=== PATIENT | male | born 1975 | race Caucasian/White ===

== ENCOUNTER 2019-02-03 09:55 | Emergency (ER) | payer OTHER ==
--- NOTE | 2019-02-03 11:47 | UC ---
General HPI - HPI Summary HPI Summary: He was standing on a three-step stool which suddenly collapsed he went straight down landing on pieces of the stool sustaining pain to his left heel and inversion to his right foot. He then broke his fall to the right landing fairly softly on his right side. He comes in complaining of time early pain in the right ankle but also pain in the left foot, bilateral knees and neck. He has no paresthesias or weakness. He did not hit his head. - History of Current Complaint Chief Complaint: UCTrauma Stated Complaint: NECK/KNEE/ANKLE INJURY Time Seen by Provider: 02/03/19 10:26 Hx Obtained From: Patient Onset/Duration: Sudden Onset Timing: Constant Onset Severity: Moderate Current Severity: Moderate Pain Intensity: 6 - Allergy/Home Medications Allergies/Adverse Reactions: Allergies Allergy/AdvReac Type Severity Reaction Status Date / Time amoxicillin Allergy Intermediate Rash Verified 02/03/19 10:18 clavulanic acid Allergy Intermediate Rash Verified 02/03/19 10:18 [From Augmentin] Penicillins Allergy Intermediate Rash Verified 02/03/19 10:18 PMH/Surg Hx/FS Hx/Imm Hx Previously Healthy: Yes - Surgical History Surgical History: Yes Surgery Procedure, Year, and Place: hernia x 2, appy - Social History Alcohol Use: Occasionally Substance Use Type: None Smoking Status (MU): Never Smoked Tobacco - Immunization History Most Recent Influenza Vaccination: no Review of Systems All Other Systems Reviewed And Are Negative: Yes Physical Exam - Summary Physical Exam Summary: He is nontoxic in appearance with stable vitals Triage Information Reviewed: Yes Appearance: Well-Appearing, No Pain Distress Vital Signs: Initial Vital Signs Temp 97.8 F 02/03/19 10:13 Pulse 47 02/03/19 10:13 Resp 18 02/03/19 10:13 BP 124/78 02/03/19 10:13 Pulse Ox 100 02/03/19 10:13 Vital Signs Reviewed: Yes Eye Exam: Normal ENT Exam: Normal Neck exam: Other - Some mild midline tenderness Respiratory Exam: Normal Cardiovascular Exam: Normal Abdominal Exam: Normal Musculoskeletal Exam: Other - Is got tenderness to stress his lateral ligaments in his right ankle as well as some mild tenderness to palpation of the lateral malleolus. He's got some tenderness over the plantar aspect of his proximal foot. Both of his knees have tenderness to range of motion. The right is tender to stressing the lateral collaterals and the left medial collaterals. Diagnostics - Radiology C-spine Radiology Interpretation Completed By: Radiologist Summary of Radiographic Findings: No acute process right ankle Radiology Interpretation Completed By: Radiologist Summary of Radiographic Findings: No acute process left foot Radiology Interpretation Completed By: Radiologist Summary of Radiographic Findings: No acute process bilateral knees Radiology Interpretation Completed By: Radiologist Summary of Radiographic Findings: No acute process Course/Dx - Course Course Of Treatment: He is able to get around pretty well with his right ankle in a gel cast and using crutches. He seems to have a fairly classic grade 1 or 2 sprain of the right ankle and the rest of the finger just bumps and bruises. I recommended rest and ibuprofen and gave him a work note. - Diagnoses Provider Diagnosis: Right ankle sprain, Multiple contusions Discharge ED - Sign-Out/Discharge Documenting (check all that apply): Patient Departure All imaging exams completed and their final reports reviewed: Yes - Discharge Plan Condition: Stable Disposition: HOME Patient Education Materials: Ankle Sprain (ED) Referrals: Daphne Arvizu NP [Primary Care Provider] - Additional Instructions: Expect widespread aches and pains. If they have any concerns please return. If her ankle is not improving in the next week or so please follow up with her PCP - Billing Disposition and Condition Condition: STABLE Disposition: Home
[2019-02-03 12:27] VITALS: BP 130/74
== END 2019-02-03 12:23 | disposition home or self-care (01) ==
LOC: UCEAST 09:55
DX: S93.401A Sprain of unspecified ligament of right ankle, initial encounter (principal); S60.00XA Contusion of unspecified finger without damage to nail, initial encounter; M25.561 Pain in right knee; M25.562 Pain in left knee; M54.2 Cervicalgia; Z88.0 Allergy status to penicillin; W08.XXXA Fall from other furniture, initial encounter; Y92.9 Unspecified place or not applicable
CPT/HCPCS: 72020; 72050; 99213; G0463

== ENCOUNTER 2019-05-28 16:59 | Emergency (ER) | payer OTHER ==
--- NOTE | 2019-05-28 17:24 | UC ---
FLU HPI - HPI Summary HPI Summary: 44-year-old male presenting with for complaining of chest congestion, fatigue, body aches, chills, and nonproductive cough 2 days. Patient states symptoms were worse on Sunday and he went home after work and slept for 15 hours. Patient states that today he has continued to cough and it is causing him right-sided chest pain. Notes feeling like he is short of breath, especially with coughing. Denies significant nasal congestion or sore throat. Notes nausea on Sunday. Denies vomiting, abdominal pain, and diarrhea. States he is taking DayQuil and using albuterol inhaler for symptom relief. PMHx significant for asthma and [employer]. - History of Current Complaint Stated Complaint: CHEST PAIN & CONGESTION Hx Obtained From: Patient Pain Intensity: 6 Pain Scale Used: 0-10 Numeric - Allergy/Home Medications Allergies/Adverse Reactions: Allergies Allergy/AdvReac Type Severity Reaction Status Date / Time amoxicillin Allergy Intermediate Rash Verified 05/28/19 17:16 clavulanic acid Allergy Intermediate Rash Verified 05/28/19 17:16 [From Augmentin] Penicillins Allergy Intermediate Rash Verified 05/28/19 17:16 Home Medications: Home Medications Montelukast Sodium TAB* [Singulair 10 MG TAB*] 1 tab PO DAILY 05/28/19 [History Confirmed 05/28/19] PMH/Surg Hx/FS Hx/Imm Hx Respiratory History: Asthma, Pneumonia - last year - Surgical History Surgical History: Yes Surgery Procedure, Year, and Place: hernia x 2, appy - Family History Known Family History: Positive: Non-Contributory - Social History Alcohol Use: Occasionally Substance Use Type: None Smoking Status (MU): Never Smoked Tobacco - Immunization History Most Recent Influenza Vaccination: no Review of Systems All Other Systems Reviewed And Are Negative: Yes Constitutional: Positive: Chills, Fatigue ENT: Positive: Negative Respiratory: Positive: Shortness Of Breath, Cough - nonproductive, Other Cardiovascular: Positive: Chest Pain - "chest pain with coughing and deep breaths". Negative: Palpitations Gastrointestinal: Positive: Nausea - 2 days ago Musculoskeletal: Positive: Myalgia Neurological: Positive: Headache Physical Exam - Summary Physical Exam Summary: Vital Signs Reviewed: Yes A+Ox3, no pain distress, no respiratory distress Eyes: Conjunctiva Clear ENT: Hearing grossly normal TM x 2 clear, moist, uvula midline, no exudate, + pharyngeal erythema Neck: Positive: Supple Respiratory: Positive: No respiratory distress, No accessory muscle use, + expiratory wheezes left upper lobe, no rhonchi Cardiovascular: RRR nl s1, s2 no m/r Musculoskeletal Exam: CINTRON x 4 without difficulty Neurological: Positive: Alert Psychological: Positive: age appropriate behavior Skin: Positive: no rash, no ecchymosis Vital Signs: Initial Vital Signs Temp 100.3 F 05/28/19 17:10 Pulse 100 05/28/19 17:10 Resp 18 05/28/19 17:10 BP 126/81 05/28/19 17:10 Pulse Ox 94 05/28/19 17:10 Lab Results 05/28/19 Range/Units 17:52 Influenza A (Rapid) Positive A (Negative) Diagnostics - Radiology chest Radiology Interpretation Completed By: Radiologist Summary of Radiographic Findings: IMPRESSION: #. No evidence for pneumonia. No acute cardiopulmonary process evident. - EKG Cardiac Rate: NL Cardiac Rhythm: Sinus: Normal Ectopy: None ST Segment: Normal Flu Course/Dx - Course Course Of Treatment: EKG normal. CXR normal. Rapid flu a positive. Patient given Tylenol for pain and low-grade fever of 100.3. The patient O2 94 on presentation but denied shortness of breath or difficulty breathing. Patient denied breathing treatment stating he has inhaler home he has been using and has a nebulizer as well. Educated on influenza and symptomatic treatment. Instructed to continue with ibuprofen or Tylenol, an inhaler home. Instructed to do nebulizer when he gets home and he agreed. Instructed to follow up with PCP or [facility] if symptoms persist. Educated on signs and symptoms of worsening illness and instructed to go to ED if any red flags occur. Patient voiced understanding and agreed with treatment plan - Differential Dx/Diagnosis Provider Diagnosis: Influenza A Discharge ED - Sign-Out/Discharge Documenting (check all that apply): Patient Departure All imaging exams completed and their final reports reviewed: Yes - Discharge Plan Condition: Stable Disposition: HOME Patient Education Materials: Influenza (ED) Forms: *Work Release Referrals: Daphne Arvizu NP [Primary Care Provider] - If Needed Additional Instructions: As discussed, you tested positive for influenza today. Continue to use your inhaler as needed for shortness of breath. You may continue with tylenol and/or ibuprofen for fever and pain relief. Get plenty of rest and increase your fluid intake. Follow up with your primary care provider if symptoms do not resolve. Go to the emergency room with any new or worsening symptoms. - Billing Disposition and Condition Condition: STABLE Disposition: Home
[2019-05-28] MEDS ORDERED: Acetaminophen TAB* 325 MG PO ONE (17:32)
[2019-05-28 17:56] LABS: Influenza A Molecular POSITIVE (Negative)
[2019-05-28 18:42] VITALS: BP 121/71
== END 2019-05-28 18:20 | disposition home or self-care (01) ==
LOC: UCEAST 16:59
DX: J10.1 Influenza due to other identified influenza virus with other respiratory manifestations (principal); J45.909 Unspecified asthma, uncomplicated; Z87.01 Personal history of pneumonia (recurrent); Z88.0 Allergy status to penicillin; Z79.899 Other long term (current) drug therapy
CPT/HCPCS: 71046; 93005; 99211; A9270-GY; G0463